=== PATIENT | male | born 1970 | race Caucasian/White ===

== ENCOUNTER 2018-06-13 05:48 | Inpatient (IN) | payer OTHER ==
[2018-06-13] MEDS ORDERED: CLINDAMYCIN 900 MG/50 ML D5W IVPB IVPB (07:00)
[2018-06-13] MEDS ORDERED: METOCLOPRAMIDE 10 MG INJ (07:00)
[2018-06-13] MEDS ORDERED: ROCURONIUM 50 MG INJ (07:00)
[2018-06-13] MEDS ORDERED: DEXAMETHASONE 4 MG/ML 5 ML INJ (07:00)
[2018-06-13] MEDS ORDERED: MEPERIDINE 25 MG INJ IV (07:30)
[2018-06-13] MEDS ORDERED: HYDROmorphONE 1 MG/5 ML IV SYRINGE IV ×3 (07:30)
[2018-06-13] MEDS ORDERED: LEVALBUTEROL (NEB) 1.25 MG/0.5 ML AMP HHN (07:30)
[2018-06-13] MEDS ORDERED: MIDAZOLAM 1 MG/ML 2 ML INJ (07:30)
[2018-06-13] MEDS ORDERED: DIPHENHYDRAMINE 50 MG INJ IV (07:30)
[2018-06-13] MEDS ORDERED: IPRATROPIUM (NEB) 0.5 MG/2.5 ML AMP HHN (07:30)
[2018-06-13] MEDS ORDERED: PROPOFOL 20 ML (07:30)
[2018-06-13] MEDS ORDERED: LIDOCAINE 2% (SDV) 5 ML INJ (07:30)
[2018-06-13] MEDS ORDERED: FENTAnyl 50 MCG/ML VIAL IV ×2 (07:30)
[2018-06-13] MEDS ORDERED: ONDANSETRON 4 MG INJ (07:31)
[2018-06-13] MEDS ORDERED: SUCCINYLCHOLINE CHLORIDE 100 MG/5 ML SYG IV (07:31)
[2018-06-13] MEDS: CLINDAMYCIN 900 MG/D5W (PMX) 50 ML IVPB (08:30)
[2018-06-13] MEDS ORDERED: HYDROmorphONE 2 MG/ML SYG (08:32)
[2018-06-13] MEDS ORDERED: KETAMINE (50 MG/ML) 10 ML VIAL (08:33)
[2018-06-13] MEDS ORDERED: PHENYLephrine (100 MCG/ML) 10ML SYG (08:42)
[2018-06-13] MEDS: BUPIVACAINE 0.5%/EPI (SDV) 30 ML INJ (08:45)
[2018-06-13] MEDS: GELATIN SIZE 100 SPONGE (09:04)
[2018-06-13] MEDS: POLYMYXIN/BACITRACIN 1L IRRIG (09:09)
[2018-06-13] MEDS: THROMBIN 5000 UNIT VIAL (09:09)
[2018-06-13] MEDS: HEMOSTATIC MATRIX SYG ZFS (09:28)
[2018-06-13] MEDS ORDERED: PROCHLORPERAZINE 10 MG TAB PO (14:30)
[2018-06-13] MEDS ORDERED: NALOXONE (0.4 MG/ML) INJ IV (14:30)
[2018-06-13] MEDS ORDERED: ACETAMINOPHEN 325 MG TAB PO (14:30)
[2018-06-13] MEDS ORDERED: HYDROCODONE/APAP (5/325) TAB PO ×2 (14:30)
[2018-06-13] MEDS ORDERED: NACL 0.9% 3 ML SYG IV (14:30)
[2018-06-13] MEDS: HYDROmorphONE 0.2 MG/ML PCA IV (15:04)
[2018-06-13] MEDS: ONDANSETRON 4 MG INJ IV (16:07)
[2018-06-13] MEDS: LABETALOL HCL 20MG INJ IV (17:46)
[2018-06-13] MEDS: hydrALAzine 20 MG INJ IV (18:10)
[2018-06-13] MEDS: DEXAMETHASONE 10 MG/ML 1 ML INJ IV (20:16)
[2018-06-13] MEDS: DEXTROSE 5%-0.45% NACL 1,000 ML IV (21:08)
[2018-06-13] MEDS: TAMSULOSIN (SR) 0.4 MG CAP PO (21:13)
[2018-06-13] MEDS: LISINOPRIL 20 MG TAB PO (21:13)
[2018-06-13] MEDS: METOPROLOL (XL) 25 MG TAB PO (21:14)
[2018-06-13] MEDS: LORAZEPAM 4 MG/ML VIAL IV (23:05)
[2018-06-14] MEDS ORDERED: ENALAPRILAT 2.5 MG INJ IV (03:08)
[2018-06-14] MEDS ORDERED: ENALAPRILAT 1.25 MG INJ IV (03:13)
[2018-06-14] MEDS: ENALAPRILAT 2.5 MG INJ IV ×4 (03:25→21:30)
[2018-06-14] MEDS: ALBUTEROL 0.083% (NEB) 2.5 MG/3 ML AMP HHN (04:02)
[2018-06-14 05:18] LABS: HEMATOCRIT 42.2 % (42.0-52.0); HEMOGLOBIN 14.6 g/dl (14.0-18.0)
[2018-06-14 05:48] LABS: ANION GAP 17 (5-13); BLOOD UREA NITROGEN 17 mg/dl (7-20); CALCIUM 10.1 mg/dl (8.4-10.2); CARBON DIOXIDE 24 mmol/L (21-31); CHLORIDE 101 mmol/L (97-110); CREATININE 0.88 mg/dl (0.61-1.24); Estimated GFR > 60 mL/min (>60); GLUCOSE 214 mg/dl (70-220); SODIUM 142 mmol/L (135-144)
[2018-06-14] MEDS: DEXTROSE 5%-0.45% NACL 1,000 ML IV (06:25)
[2018-06-14] MEDS ORDERED: METOPROLOL 5 MG INJ IV ×3 (09:00→18:00)
[2018-06-14] MEDS: DOCUSATE SODIUM 100 MG CAP PO ×2 (09:00→21:00)
[2018-06-14] MEDS: CLONIDINE 0.2 MG/24 HR PATCH TRANSDERM (09:00)
[2018-06-14] MEDS: hydrALAzine 20 MG INJ IV ×4 (09:18→23:23)
[2018-06-14] MEDS: SOD CHLORIDE 0.9% 1,000 ML IV ×2 (13:17→23:30)
[2018-06-14] MEDS: DEXAMETHASONE 10 MG/ML 1 ML INJ IV (15:34)
[2018-06-14] MEDS: METOPROLOL (XL) 50 MG TAB PO (17:19)
[2018-06-14] MEDS: TAMSULOSIN (SR) 0.4 MG CAP PO (21:00)
[2018-06-14] MEDS: LORAZEPAM 4 MG/ML VIAL IV (23:09)
[2018-06-15] MEDS: ENALAPRILAT 2.5 MG INJ IV ×4 (03:39→22:04)
[2018-06-15] MEDS: HYDROmorphONE 0.2 MG/ML PCA IV (04:13)
[2018-06-15] MEDS: SOD CHLORIDE 0.9% 1,000 ML IV ×2 (05:00→09:34)
[2018-06-15 06:58] LABS: ADD MAN DIFF? NO
[2018-06-15] MEDS: hydrALAzine 20 MG INJ IV ×3 (07:03→17:45)
[2018-06-15 07:05] LABS: ABNORMAL IP MESSAGE 1; BASOPHILS % 0.1 % (0.0-2.0); HEMOGLOBIN 14.3 g/dl (14.0-18.0); LYMPHOCYTES # 2.7 10^3/ul (0.8-2.9); LYMPHOCYTES % 17.1 % (15.0-51.0); MEAN CORPUSCULAR HEMOGLOBIN 29.2 pg (29.0-33.0); MEAN CORPUSCULAR VOLUME 85.7 fl (82.0-101.0); MEAN PLATELET VOLUME 10.3 fl (7.4-10.4); MONOCYTES % 12.5 % (0.0-11.0); NEUTROPHIL # 10.9 10^3/ul (1.6-7.5); NEUTROPHILS % 69.9 % (39.0-77.0); PLATELET COUNT 231 10^3/UL (140-415); POSITIVE DIFF @See below; RED CELL DISTRIBUTION WIDTH 12.9 % (11.5-14.5)
[2018-06-15 07:05] LABS: WHITE BLOOD COUNT 15.6 10^3/ul (4.8-10.8)
[2018-06-15 07:27] LABS: ANION GAP 13 (5-13); BLOOD UREA NITROGEN 21 mg/dl (7-20); CALCIUM 9.7 mg/dl (8.4-10.2); CARBON DIOXIDE 28 mmol/L (21-31); CHLORIDE 104 mmol/L (97-110); CREATININE 0.78 mg/dl (0.61-1.24); Estimated GFR > 60 mL/min (>60); GLUCOSE 157 mg/dl (70-220); MAGNESIUM 1.8 mg/dl (1.7-2.5); PHOSPHORUS 3.7 mg/dl (2.5-4.9); SODIUM 145 mmol/L (135-144)
[2018-06-15 07:52] LABS: THYROID STIMULATING HORMONE 0.462 MIU/L (0.465-4.680)
[2018-06-15] MEDS: DOCUSATE SODIUM 100 MG CAP PO ×2 (08:40→21:00)
[2018-06-15] MEDS: DEXAMETHASONE 10 MG/ML 1 ML INJ IM (09:33)
[2018-06-15] MEDS: METOPROLOL 5 MG INJ IV ×3 (09:34→17:43)
[2018-06-15] MEDS: LORAZEPAM 4 MG/ML VIAL IV (10:15)
[2018-06-15 10:18] LABS: ADD UMIC YES; UR ASCORBIC ACID NEGATIVE (NEGATIVE); UR BILIRUBIN (Dip) NEGATIVE (NEGATIVE); UR BLOOD (Dip) 2+ mg/dL (NEGATIVE); UR CLARITY CLEAR (CLEAR); UR COLOR YELLOW (YELLOW); UR GLUCOSE (Dip) NEGATIVE (NEGATIVE); UR KETONES (Dip) NEGATIVE (NEGATIVE); UR LEUKOCYTE ESTERASE (Dip) NEGATIVE Leu/ul (NEGATIVE); UR NITRITE (Dip) NEGATIVE (NEGATIVE); UR RBC 98 /HPF (0-5); UR SPECIFIC GRAVITY (Dip) 1.019 (1.003-1.030); UR TOTAL PROTEIN (Dip) 2+ mg/dl (NEGATIVE); UR UROBILINOGEN (Dip) 1+ mg/dL (NEGATIVE); UR WBC 5 /HPF (0-5)
[2018-06-15] MEDS: DEXAMETHASONE 10 MG/ML 1 ML INJ IV (11:01)
[2018-06-15] MEDS: ONDANSETRON 4 MG INJ IV (20:29)
[2018-06-15] MEDS: TAMSULOSIN (SR) 0.4 MG CAP PO (21:00)
[2018-06-16] MEDS: SOD CHLORIDE 0.9% 1,000 ML IV (00:14)
[2018-06-16] MEDS: METOPROLOL 5 MG INJ IV ×3 (00:50→12:22)
[2018-06-16] MEDS: ENALAPRILAT 2.5 MG INJ IV ×3 (04:44→15:26)
[2018-06-16] MEDS: hydrALAzine 20 MG INJ IV ×3 (06:32→12:22)
[2018-06-16 07:00] LABS: ADD MAN DIFF? NO
[2018-06-16 07:04] LABS: WHITE BLOOD COUNT 9.4 10^3/ul (4.8-10.8)
[2018-06-16 07:04] LABS: BASOPHILS % 0.1 % (0.0-2.0); EOSINOPHILS % 0.1 % (0.0-7.0); HEMOGLOBIN 13.2 g/dl (14.0-18.0); LYMPHOCYTES # 2.3 10^3/ul (0.8-2.9); LYMPHOCYTES % 23.9 % (15.0-51.0); MEAN CORPUSCULAR HEMOGLOBIN 29.5 pg (29.0-33.0); MEAN CORPUSCULAR HGB CONC 33.8 g/dl (32.0-37.0); MEAN CORPUSCULAR VOLUME 87.1 fl (82.0-101.0); MEAN PLATELET VOLUME 10.7 fl (7.4-10.4); MONOCYTE # 1.2 10^3/ul (0.3-0.9); MONOCYTES % 12.5 % (0.0-11.0); NEUTROPHIL # 5.9 10^3/ul (1.6-7.5); NEUTROPHILS % 63.1 % (39.0-77.0); PLATELET COUNT 177 10^3/UL (140-415); RED BLOOD COUNT 4.48 10^6/ul (4.70-6.10); RED CELL DISTRIBUTION WIDTH 12.6 % (11.5-14.5)
[2018-06-16 07:27] LABS: ANION GAP 12 (5-13); BLOOD UREA NITROGEN 24 mg/dl (7-20); CALCIUM 9.3 mg/dl (8.4-10.2); CARBON DIOXIDE 28 mmol/L (21-31); CHLORIDE 105 mmol/L (97-110); CREATININE 0.83 mg/dl (0.61-1.24); Estimated GFR > 60 mL/min (>60); GLUCOSE 141 mg/dl (70-220); PHOSPHORUS 3.9 mg/dl (2.5-4.9); POTASSIUM 3.8 mmol/L (3.5-5.1); SODIUM 145 mmol/L (135-144)
[2018-06-16] MEDS: DOCUSATE SODIUM 100 MG CAP PO ×3 (09:00→21:26)
[2018-06-16] MEDS: DEXTROSE 5%-0.225% NACL 1,000 ML IV ×2 (09:05→22:21)
[2018-06-16] MEDS: ARTIFICIAL TEARS 15 ML OPH BOTH EYES (13:13)
[2018-06-16] MEDS: METOPROLOL (XL) 50 MG TAB PO (15:37)
[2018-06-16] MEDS: LISINOPRIL 20 MG TAB PO ×3 (16:17→21:26)
[2018-06-16] MEDS: TAMSULOSIN (SR) 0.4 MG CAP PO ×2 (21:00→21:25)
[2018-06-17] MEDS: ENALAPRILAT 1.25 MG INJ IV ×3 (00:25→12:31)
[2018-06-17 04:57] LABS: ADD MAN DIFF? NO
[2018-06-17] MEDS: hydrALAzine 20 MG INJ IV (04:58)
[2018-06-17 05:02] LABS: WHITE BLOOD COUNT 10.3 10^3/ul (4.8-10.8)
[2018-06-17 05:02] LABS: BASOPHILS % 0.2 % (0.0-2.0); EOSINOPHILS # 0.1 10^3/ul (0.0-0.5); HEMATOCRIT 40.5 % (42.0-52.0); LYMPHOCYTES # 2.6 10^3/ul (0.8-2.9); MEAN CORPUSCULAR HEMOGLOBIN 29.6 pg (29.0-33.0); MEAN CORPUSCULAR HGB CONC 34.6 g/dl (32.0-37.0); MEAN CORPUSCULAR VOLUME 85.6 fl (82.0-101.0); MEAN PLATELET VOLUME 10.1 fl (7.4-10.4); MONOCYTE # 1.1 10^3/ul (0.3-0.9); MONOCYTES % 10.6 % (0.0-11.0); NEUTROPHIL # 6.5 10^3/ul (1.6-7.5); NEUTROPHILS % 62.8 % (39.0-77.0); PLATELET COUNT 205 10^3/UL (140-415); RED BLOOD COUNT 4.73 10^6/ul (4.70-6.10); RED CELL DISTRIBUTION WIDTH 11.9 % (11.5-14.5)
[2018-06-17 05:20] LABS: ANION GAP 13 (5-13); BLOOD UREA NITROGEN 20 mg/dl (7-20); CALCIUM 9.3 mg/dl (8.4-10.2); CARBON DIOXIDE 27 mmol/L (21-31); CHLORIDE 103 mmol/L (97-110); CREATININE 0.74 mg/dl (0.61-1.24); Estimated GFR > 60 mL/min (>60); GLUCOSE 150 mg/dl (70-220); MAGNESIUM 1.8 mg/dl (1.7-2.5); PHOSPHORUS 3.5 mg/dl (2.5-4.9); POTASSIUM 3.5 mmol/L (3.5-5.1); SODIUM 143 mmol/L (135-144)
[2018-06-17] MEDS: LORAZEPAM 4 MG/ML VIAL IV (06:48)
[2018-06-17] MEDS: ACETAMINOPHEN 1000MG/100ML IV 100 ML IVPB (06:48)
[2018-06-17] MEDS: DOCUSATE SODIUM 100 MG CAP PO (09:00)
[2018-06-17] MEDS: LISINOPRIL 20 MG TAB PO ×3 (09:00→12:42)
[2018-06-17] MEDS: ONDANSETRON 4 MG INJ IV (09:29)
[2018-06-17] MEDS: DEXTROSE 5%-0.225% NACL 1,000 ML IV ×2 (09:30→12:53)
[2018-06-17] MEDS ORDERED: LORAZEPAM 2 MG INJ IV (11:30)
[2018-06-17] MEDS ORDERED: METHOCARBAMOL 500 MG TAB PO (12:30)
[2018-06-17] MEDS ORDERED: HYDROmorphONE 0.5 MG/0.5 ML SYG IV (12:30)
[2018-06-17] MEDS ORDERED: OXYCODONE/ACETAMINOPHEN (10/325) TAB PO (12:30)
[2018-06-17] MEDS ORDERED: ACETAMINOPHEN 1000MG/100ML IV 100 ML IVPB (13:30)
== END 2018-06-17 20:00 | DRG 472 ==
LOC: REC 05:48 → MS1 06-16 19:34 → TEL 06-14 19:49
PROC: 0RG20K0 Fusion of 2 or more Cervical Vertebral Joints with Nonautologous Tissue Substitute, Anterior Approach, Anterior Column, Open Approach (ICD-10-PCS; principal; 2018-06-13 07:30)
PROC: 0RT30ZZ Resection of Cervical Vertebral Disc, Open Approach (ICD-10-PCS; 2018-06-13 07:30)
DX: M50.122 Cervical disc disorder at C5-C6 level with radiculopathy (principal); E87.0 Hyperosmolality and hypernatremia; M48.02 Spinal stenosis, cervical region; R13.19 Other dysphagia; R00.0 Tachycardia, unspecified; M41.82 Other forms of scoliosis, cervical region; I10 Essential (primary) hypertension
CPT/HCPCS: 71045; 72040; 72125; 80048; 81001; 83735; 84100; 84443; 85014; 85018; 85025; 87086; 92526; 92610; 93005; 94664; 97110; 97116; 97161; 97164; 97530